=== PATIENT | female | born 1970 | race Caucasian/White ===

== ENCOUNTER 2017-03-08 19:58 | Emergency (ER) | payer MEDICAID ==
[2017-03-08 23:25] VITALS: BP 142/88
== END 2017-03-08 23:25 | disposition home or self-care (01) ==
LOC: ED 19:58
DX: J06.9 Acute upper respiratory infection, unspecified (principal); I10 Essential (primary) hypertension; Z79.899 Other long term (current) drug therapy
CPT/HCPCS: J1100; J1885; J7030; J7620

== ENCOUNTER 2017-03-26 09:17 | Inpatient (IN) | payer MEDICAID ==
[~2017-03-26] VITALS: Ht 144.8 cm; Wt 75.4 kg
[2017-03-26 10:40] LABS: BASOPHIL % 0.4 % (0-2)
[2017-03-26 10:50] LABS: PLATELET COUNT 400 x10^3mcL (130-400); RED CELL DISTRIBUTION WIDTH 19.5 % (11.5-14.5)
[2017-03-26 10:51] LABS: CALCIUM 8.3 mg/dL (8.5-10.1); CARBON DIOXIDE 29.2 mmol/L (21-32); CHLORIDE SERUM 100 mmol/L (98-107); CREATININE SERUM 0.6 mg/dL (0.6-1.0); GFR1 > 60 mL/min; GLUCOSE SERUM 118 mg/dL (74-106); POTASSIUM SERUM 3.8 mmol/L (3.5-5.1); SODIUM SERUM 140 mmol/L (136-145)
[2017-03-26] MEDS ORDERED: PREDNISONE1 MG (10:59)
[2017-03-26] MEDS ORDERED: ASPIR 8181 MG (10:59)
[2017-03-26] MEDS ORDERED: LISINOPRIL2.5 MG (10:59)
[2017-03-26 11:14] LABS: rbc morphology (normal/abnorm) ABNORMAL (NORMAL)
[2017-03-26 12:54] LABS: MAGNESIUM 1.8 mg/dL (1.8-2.4); PHOSPHOROUS 3.2 mg/dL (2.5-4.9)
[2017-03-26 13:03] LABS: CHOLESTEROL/HDL RATIO 3.5
[2017-03-26 13:04] LABS: T3 TOTAL 1.15 ng/mL
[2017-03-26 13:10] VITALS: BP 153/81
[2017-03-26 13:43] LABS: TOTAL IRON BINDING CAPACITY 391 ug/dL (250-450)
[2017-03-26 13:57] LABS: RED BLOOD CELLS 2.76 M/mm3 (4.10-5.10)
[2017-03-26 14:01] LABS: IRON 11 ug/dL (50-170)
[2017-03-26 14:04] LABS: FREE T4 0.97 ng/dL (0.76-1.46); FREE THYROXINE INDEX 1.9 ug/dL (1.4-4.5); T4(THYROXINE) 5.3 ug/dL (4.7-13.3)
[2017-03-26 14:04] LABS: BASOPHIL % 0.3 % (0-2)
[2017-03-26 14:11] LABS: PLATELET COUNT 414 x10^3mcL (130-400); RED CELL DISTRIBUTION WIDTH 19.8 % (11.5-14.5)
[2017-03-26 14:37] LABS: rbc morphology (normal/abnorm) ABNORMAL (NORMAL)
[2017-03-26 16:45] VITALS: BP 147/82
[2017-03-26 17:10] VITALS: BP 144/81
[2017-03-26 18:12] VITALS: BP 151/85
[2017-03-26 21:00] VITALS: BP 128/80
[2017-03-26 23:00] VITALS: BP 127/77
[2017-03-27 03:55] LABS: BASOPHIL % 1.7 % (0-2)
[2017-03-27 03:56] LABS: PLATELET COUNT 403 x10^3mcL (130-400); RED CELL DISTRIBUTION WIDTH 18.7 % (11.5-14.5)
[2017-03-27 04:06] LABS: CALCIUM 8.3 mg/dL (8.5-10.1); CARBON DIOXIDE 30.5 mmol/L (21-32); CHLORIDE SERUM 99 mmol/L (98-107); CREATININE SERUM 0.6 mg/dL (0.6-1.0); GFR1 > 60 mL/min; GLUCOSE SERUM 110 mg/dL (74-106); POTASSIUM SERUM 3.5 mmol/L (3.5-5.1); SODIUM SERUM 138 mmol/L (136-145)
[2017-03-27 06:58] VITALS: BP 138/81
[2017-03-27 09:50] VITALS: BP 140/66
[2017-03-27] MEDS ORDERED: FERROUS SULFAT325 M2 PO (13:41)
[2017-03-27] MEDS ORDERED: PHARMASSURE VI500 MG PO (13:42)
[2017-03-27] MEDS ORDERED: THERA TABS1 TAB PO (13:42)
[2017-03-27 14:03] VITALS: BP 140/66
[2017-03-27 16:21] LABS: AMPHETAMINE QUAL UR NONE DETECTED (NEG <=1000)
[2017-03-27 16:29] LABS: microscopic required? YES; urine erythrocyte 3+ (NEGATIVE)
== END 2017-03-27 15:32 | disposition home or self-care (01) | DRG 517 ==
LOC: ED 09:17 → DU 11:06 → MU 11:06 → DU 11:54 → MU 03-27 06:52
PROVIDERS: Emergency Medicine; Obstetrics & Gynecology; ADMIT Family Medicine
PROC: 30233N1 Transfusion of Nonautologous Red Blood Cells into Peripheral Vein, Percutaneous Approach (ICD-10-PCS; 2017-03-26)
PROC: 0UDB7ZZ Extraction of Endometrium, Via Natural or Artificial Opening (ICD-10-PCS; principal; 2017-03-26 22:15)
DX: N93.8 Other specified abnormal uterine and vaginal bleeding (principal); E11.65 Type 2 diabetes mellitus with hyperglycemia; I10 Essential (primary) hypertension; D62 Acute posthemorrhagic anemia; E78.5 Hyperlipidemia, unspecified; E66.9 Obesity, unspecified; Z79.82 Long term (current) use of aspirin; Z68.36 Body mass index [BMI] 36.0-36.9, adult; Z79.52 Long term (current) use of systemic steroids
CPT/HCPCS: 82962; 83880; 84439; J0690; J2175; J2250; J2704; J3010; J7030; J7050; J7120; P9016; Q0092; Q0163

== ENCOUNTER 2019-01-20 12:28 | Emergency (ER) | payer MEDICAID ==
[~2019-01-20] VITALS: Ht 144.8 cm; Wt 76.0 kg
[~2019-01-20 12:28] MED LIST: ASPIR 8181 MG; FERROUS SULFAT325 M2 PO; LISINOPRIL2.5 MG; PHARMASSURE VI500 MG PO; PREDNISONE1 MG; THERA TABS1 TAB PO
[2019-01-20 12:33] VITALS: Ht 144.8 cm; Wt 76.0 kg
[2019-01-20 13:15] LABS: BASOPHIL % 0.2 % (0-2); PLATELET COUNT 290 x10^3mcL (130-400); RED CELL DISTRIBUTION WIDTH 13.6 % (11.5-14.5)
[2019-01-20 13:23] LABS: CALCIUM 8.5 mg/dL (8.5-10.1); CARBON DIOXIDE 34.8 mmol/L (21-32); CHLORIDE SERUM 102 mmol/L (98-107); CREATININE SERUM 0.8 mg/dL (0.6-1.0); GFR1 > 60 mL/min; GLUCOSE SERUM 123 mg/dL (74-106); POTASSIUM SERUM 3.6 mmol/L (3.5-5.1); SODIUM SERUM 141 mmol/L (136-145)
[2019-01-20 13:29] LABS: ALBUMIN 3.6 g/dL (3.4-5.0); ALKALINE PHOSPHATASE 85 U/L (46-116); ALT/SGPT 53 U/L (14-59); AST/SGOT 35 U/L (15-37); BILIRUBIN TOTAL 0.31 mg/dL (0.20-1.00); TOTAL PROTEIN, SERUM 7.4 g/dL (6.4-8.2)
[2019-01-20 14:09] LABS: UA SPECIFIC GRAVITY 1.015 (1.005-1.035); microscopic required? YES; urine erythrocyte 3+ (NEGATIVE)
[2019-01-20 16:20] VITALS: BP 106/47
== END 2019-01-20 16:20 | disposition home or self-care (01) ==
LOC: ED 12:28
PROVIDERS: Emergency Medicine
DX: N93.9 Abnormal uterine and vaginal bleeding, unspecified (principal); D25.9 Leiomyoma of uterus, unspecified; I10 Essential (primary) hypertension
CPT/HCPCS: 36415; J7030

== ENCOUNTER 2019-02-09 23:02 | Emergency (ER) | payer MEDICAID ==
[~2019-02-09] VITALS: Ht 152.4 cm; Wt 76.2 kg
[2019-02-09 23:08] VITALS: Ht 152.4 cm; Wt 76.2 kg
[2019-02-10 00:15] LABS: BASOPHIL % 0.5 % (0-2); PLATELET COUNT 396 x10^3mcL (130-400); RED CELL DISTRIBUTION WIDTH 14.8 % (11.5-14.5)
[2019-02-10 01:45] VITALS: BP 119/65
== END 2019-02-10 01:45 | disposition home or self-care (01) ==
LOC: ED 23:02
PROVIDERS: Emergency Medicine
DX: N92.0 Excessive and frequent menstruation with regular cycle (principal); D64.9 Anemia, unspecified; I10 Essential (primary) hypertension
CPT/HCPCS: 36415

== ENCOUNTER 2019-02-18 13:01 | Inpatient (IN) | payer MEDICAID ==
[~2019-02-18] VITALS: Ht 165.1 cm; Wt 77.0 kg
[2019-02-18 13:05] VITALS: Ht 165.1 cm; Wt 77.0 kg
[2019-02-18 13:59] LABS: BASOPHIL % 0.8 % (0-2)
[2019-02-18 14:06] LABS: PLATELET COUNT 401 x10^3mcL (130-400); RED CELL DISTRIBUTION WIDTH 15.4 % (11.5-14.5)
[2019-02-18 14:07] LABS: CALCIUM 8.7 mg/dL (8.5-10.1); CHLORIDE SERUM 100 mmol/L (98-107); CREATININE SERUM 0.7 mg/dL (0.6-1.0); GFR1 > 60 mL/min; GLUCOSE SERUM 275 mg/dL (74-106); POTASSIUM SERUM 3.6 mmol/L (3.5-5.1); SODIUM SERUM 136 mmol/L (136-145)
[2019-02-18 14:12] LABS: ALBUMIN 3.4 g/dL (3.4-5.0); ALKALINE PHOSPHATASE 95 U/L (46-116); ALT/SGPT 62 U/L (14-59); AST/SGOT 38 U/L (15-37); BILIRUBIN TOTAL 0.23 mg/dL (0.20-1.00); TOTAL PROTEIN, SERUM 7.3 g/dL (6.4-8.2)
[2019-02-18] MEDS ORDERED: HYDROCHLOROTHIA25 MG PO (16:14)
[2019-02-18] MEDS ORDERED: COZAAR100 MG PO (16:14)
[2019-02-18 18:11] VITALS: BP 151/75
[2019-02-18 21:06] VITALS: BP 127/63
[2019-02-19 05:55] VITALS: BP 109/62
[2019-02-19 06:10] LABS: BASOPHIL % 0.7 % (0-2); PLATELET COUNT 353 x10^3mcL (130-400)
[2019-02-19 06:24] LABS: CALCIUM 8.3 mg/dL (8.5-10.1); CHLORIDE SERUM 104 mmol/L (98-107); CREATININE SERUM 0.7 mg/dL (0.6-1.0); GFR1 > 60 mL/min; GLUCOSE SERUM 152 mg/dL (74-106); POTASSIUM SERUM 3.7 mmol/L (3.5-5.1); SODIUM SERUM 139 mmol/L (136-145)
[2019-02-19 06:27] LABS: RED CELL DISTRIBUTION WIDTH 14.8 % (11.5-14.5)
[2019-02-19 09:46] VITALS: BP 116/62
[2019-02-19 13:01] VITALS: BP 111/62; BP 113/50
[2019-02-19 17:40] VITALS: BP 109/70
[2019-02-19 17:46] VITALS: BP 109/70
== END 2019-02-19 18:21 | disposition home or self-care (01) | DRG 517 ==
LOC: ED 13:01 → DU 15:41
PROVIDERS: Emergency Medicine; ADMIT Family Medicine
PROC: 30233N1 Transfusion of Nonautologous Red Blood Cells into Peripheral Vein, Percutaneous Approach (ICD-10-PCS; principal; 2019-02-18)
PROC: 0UDB7ZZ Extraction of Endometrium, Via Natural or Artificial Opening (ICD-10-PCS; 2019-02-19)
DX: N92.0 Excessive and frequent menstruation with regular cycle (principal); D64.9 Anemia, unspecified; I10 Essential (primary) hypertension; E66.9 Obesity, unspecified; Z68.33 Body mass index [BMI] 33.0-33.9, adult
CPT/HCPCS: C1758; C9113; J1170; J2405; J2704; J3010; J7042; J7050; J7120; P9016; Q0163